=== PATIENT | male | born 1930 | race Caucasian/White ===

== ENCOUNTER 2018-11-01 08:38 | Day surgery (SDC) | payer MEDICARE ==
[2018-11-01 13:13] LABS: Hemoglobin 10.9 g/dL (14.0-18.0)
[2018-11-01] MEDS ORDERED: PROPOFOL 200 MG/20 ML VIAL ONE (13:48)
--- NOTE | 2018-11-01 17:03 | OP ---
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 Therefore, I have not repeated any evaluations secondary to multiple comorbidities. He requires dilatation about every 6 weeks. He has not responded in the past 2 attempts at dilation and steroid injections. He is on b.i.d. PPIs most recently at the [facility] where he is [facility]. He has been changed to Protonix powder b.i.d., which is reasonable. Last dilatation was 10/04/2018. POSTPROCEDURE DIAGNOSES: 1. Benign-appearing severe stricture, 3 mm in diameter, at the upper esophageal sphincter, dilated to 18 mm. 2. Benign-appearing stricture about 10 mm at the distal esophagus, dilated to 18 mm. 3. Mild erosion in the duodenal bulb, not biopsied, benign appearing, peptic in appearance. RECOMMENDATIONS: 1. Consider repeat EGD in 4 to 6 weeks depending on overall functional status at that time. 2. When he looks pale, the nursing will go ahead and check an H and H today before he goes back to the intermediate. 3. Continue his PPIs. ANESTHESIA: TIVA. PROCEDURE IN DETAIL: The patient and his were informed of the risks, benefits, and possible complications of endoscopy including perforation, bleeding, reaction to medication, and aspiration. Informed consent was obtained. He also had been at [facility] recently for chest pain, where he retrieved his recent echo and his recent stress test, which were normal. He is having no pain now. He was brought to the endoscopy suite, where he was sedated in gradual fashion. Once he was comfortable, bite block was placed inside the orifice. The endoscope was advanced through the bite block into the esophagus. There was a very tight stricture with maybe a 2-3 mm aperture, knowing where the lumen in his esophagus was. I went ahead and placed a TTS balloon through the scope through that lumen into the esophagus and dilated the stricture 1st at 15 mm. There was good disruption of the stricture with no signs of perforation. We went ahead and dilated to 18 mm, which we had been doing in the past with no difficulty. The balloon was then dropped when there was a good effect noted. The scope was advanced to the distal esophagus, where again the 2nd stricture was encountered about 10 mm in diameter. This was dilated to 18 mm as well. Again, there were no signs of perforation. There was good mucosal laceration. The scope was advanced into the stomach, which was normal in forward and retroflexed views. There was a small erosion at the duodenal bulb, but was not biopsied. Duodenum in the third portion was normal. The scope was removed. I re-investigated the two areas of dilatation with no signs of perforation. The stomach and oropharynx were suctioned out. The patient was then allowed to wake up and brought to recovery room in stable condition. Job ID: [id number]
== END 2018-11-01 14:10 ==
LOC: SDC 08:38
PROVIDERS: ATTEND Internal Medicine Gastroenterology
PROC: 0D758ZZ Dilation of Esophagus, Via Natural or Artificial Opening Endoscopic (ICD-10-PCS; principal; 2018-11-01)
DX: K22.2 Esophageal obstruction (principal); K26.9 Duodenal ulcer, unspecified as acute or chronic, without hemorrhage or perforation
CPT/HCPCS: 36415; 85014; 85018; J2704